=== PATIENT | female | born 1990 | race Asian ===

== ENCOUNTER 2021-09-30 12:30 | Outpatient (CLI) | payer OTHER, SELFPAY ==
[2021-09-30 14:58] LABS: Beta HCG Quantitative < 2.39 mIU/ML
== END 2021-09-30 12:31 | disposition home or self-care (01) ==
LOC: ANHLAB 12:37
PROVIDERS: Visit Provider Obstetrics & Gynecology
DX: N92.6 Irregular menstruation, unspecified (principal)
CPT/HCPCS: 36415; 84702

== ENCOUNTER 2022-06-05 10:00 | Outpatient (CLI) | payer OTHER, SELFPAY ==
[2022-06-10 21:18] LABS: Progesterone 0.4 ng/mL (***); Prolactin 12.1 ng/mL (***)
== END 2022-06-05 10:01 | disposition home or self-care (01) ==
LOC: ANHLAB 10:02
PROVIDERS: PCP Internal Medicine; Visit Provider Obstetrics & Gynecology
DX: N92.6 Irregular menstruation, unspecified (principal)
CPT/HCPCS: 36415; 84144; 84146; 84443

== ENCOUNTER 2023-11-23 12:03 | Outpatient (CLI) | payer OTHER, SELFPAY ==
[2023-11-23 13:40] LABS: Hematocrit 36.3 % (37.0-47.0); Mean Corpuscular HGB Conc 33.1 g/dl (32-36); Mean Corpuscular Volume 90.8 fl (80-100); Mean Platelet Volume 9.5 fl (7.4-10.4); Platelet Count Result 333 k/mm3 (150-375); Red Cell Distribution Width 12.8 % (11.5-14.5); White Blood Count 11.1 K/mm3 (4.5-10.0)
[2023-11-23 13:51] LABS: Glucose 1 Hour PP 50gm Dose 136 mg/dL
[2023-11-23 14:30] LABS: HIV 1/2 Ab P24 Ag Result Negative (Negative)
[2023-11-23 19:09] LABS: Rapid Plasma Reagin Non-Reactive (NonReactive)
== END 2023-11-23 12:04 | disposition home or self-care (01) ==
LOC: ANHLAB 12:05
PROVIDERS: PCP Internal Medicine; Visit Provider Student in an Organized Health Care Education/Training Program
DX: Z34.90 Encounter for supervision of normal pregnancy, unspecified, unspecified trimester (principal); Z3A.00 Weeks of gestation of pregnancy not specified
CPT/HCPCS: 36415; 82947; 85027; 86592; 86703; G0432

== ENCOUNTER 2023-11-30 06:53 | Outpatient (CLI) | payer OTHER, SELFPAY ==
[2023-11-30 07:24] LABS: Glucose Fasting Gestational 81 mg/dL (>/=95)
[2023-11-30 08:54] LABS: Glucose 1 Hour Gest 177 mg/dL (>/=180)
[2023-11-30 09:57] LABS: Glucose 2 Hour Gest 143 mg/dL (>/= 155)
[2023-11-30 11:38] LABS: Glucose 3 Hour Gest 85 mg/dL (>/=140)
== END 2023-11-30 06:54 | disposition home or self-care (01) ==
LOC: ANHLAB 06:55
PROVIDERS: PCP Internal Medicine; Visit Provider Obstetrics & Gynecology
DX: R73.09 Other abnormal glucose (principal)
CPT/HCPCS: 36415; 82951; 82952

== ENCOUNTER 2024-02-11 05:58 | Inpatient (IN) | payer OTHER, SELFPAY ==
[2024-02-11] VITALS (198 sets, daily range): BP systolic 80–161; BP diastolic 41–112; PULSE 59–167; RESP 18; TEMP 36.8–37.4; O2SAT 80–100; BMI 30.4
--- NOTE | 2024-02-11 06:26 | WPDANESEPP ---
Anes - Eval Pre Procedure Procedure: labor epidural Date/Time: 02/11/24 06:26 Surgeon: chika Preop Diagnosis: pain during labor Pre Op Diagnosis: Induction of Labor Patient Data Age: 33 Gender: F Height: Weight: Allergies Allergy/AdvReac Type Severity Reaction Status Date / Time No Known Allergies Allergy Verified 02/08/24 09:12 Home Medications Medication Instructions Recorded Confirmed Type vits no.126-ferrous fum 1 tablet PO DAILY 10/13/23 02/08/24 History 28 mg iron-folic acid 800 mcg tablet (Classic ) Patient hx anesthesia problems: none Family hx anesthesia problems: none Results Review: All pre-operative results and documents have been reviewed as part of the pre-operative evaluation. [facility] Past Medical History Medical History Encounter for IUD insertion 2014 Mirena insertion Encounter for IUD removal 06/09/19 Mirena removal History of hysterosalpingogram 06/26/2022 Family History Family History Other No pertinent family history Social History Social History Smoking status: Never smoker Second hand tobacco smoke exposure: Yes Alcohol intake: never Substance use: never Substance use type: does not use Do You Feel Safe in your Home?: Yes Lack of Transportation: No Lack of Food: Never True Current Housing: I Have Housing Concerned About Future Housing: No Difficulty Paying Gas/Electric Bills: No Difficulty Paying for Meds: No Currently Unemployed: No Education: Bachelor's Degree Difficulty w/ Childcare or Family Care: No Living arrangements: with family Additional living arrangements comments: single Occupation/Education: occupation 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
[2024-02-11 07:10] LABS: Basophils Percent Auto 0.2 % (0.2-1.2); Eosinophils Absolute Auto 0.1 K/mm3 (0-0.3); Eosinophils Percent Auto 1.4 % (0-4.4); Hematocrit 35.3 % (37.0-47.0); Hemoglobin 11.4 g/dL (12.0-15.0); Immature Granulocyte Absolute 0.04 K/mm3 (0.00-0.031); Immature Granulocyte Percent A 0.5 % (0-0.5); Lymphocytes Absolute Auto 2.21 K/mm3 (0.9-3.2); Lymphocytes Percent Auto 25.9 % (18.3-44.2); Mean Corpuscular HGB Conc 32.3 g/dl (32-36); Mean Corpuscular Hemoglobin 26.9 pg (26-34); Mean Corpuscular Volume 83.3 fl (80-100); Mean Platelet Volume 9.8 fl (7.4-10.4); Monocytes Percent Auto 11.3 % (2.6-8.5); Neutrophils Absolute Auto 5.2 K/mm3 (1.3-6.7); Neutrophils Percent Auto 60.7 % (45.5-73.1); Platelet Count Result 316 k/mm3 (150-375); Red Blood Count 4.24 M/mm3 (4.2-5.4); Red Cell Distribution Width 14.9 % (11.5-14.5); White Blood Count 8.5 K/mm3 (4.5-10.0)
--- NOTE | 2024-02-11 07:27 | LDADM ---
This patient, Bc Mueller, was admitted to Labor/Delivery/Recovery 103 on 02/11/24 at 05:58. Plans for labor, pain management and were discussed with patient. Patient/family oriented to hospital policies and general routines including ID bracelet, bed and alarms, visiting hours, pain management, procedures, bathroom and other care routines, personal items, smoking policy, room service/diet and guest tray routines, security routines, and visiting hours. Patient/Family are encouraged to report perceived risks to care and to ask questions if they do not understand what they are told or what they should do. See OBIX for further documentation.
[2024-02-11] MEDS: OXYTOCIN 30 UNITS/NS 500 ML 30 UNITS/500 ML BAG 6 UNITS IV CONT (07:51)
[2024-02-11] MEDS: LACTATED RINGERS 1,000 ML 125 ML IV CONT (07:53)
[2024-02-11] MEDS: AMPICILLIN 2 GM/NS 100 ML 2 GM/100 ML BAG IVPB (07:53)
[2024-02-11 07:59] LABS: HIV 1/2 Ab P24 Ag Result Negative (Negative)
[2024-02-11 08:16] LABS: Rapid Plasma Reagin Non-Reactive (NonReactive)
[2024-02-11] MEDS: AMPICILLIN 1 GM/NS 50 ML 1 GM/50 ML BAG IVPB ×2 (11:24→15:50)
--- NOTE | 2024-02-11 17:37 | WPDOBADMIT ---
Obstetrics - Admit Note Admission Note: record reviewed. No pertinent additions to the history and/or any subsequent changes in the physical findings that are not consistent with the expected course of the were found. Additions to the history and/or subsequent changes in the physical findings follow. None.
--- NOTE | 2024-02-11 17:37 | WPDHPUPDATE1 ---
History and Physical Update Update Date/Time: 02/11/24 17:37 History and Physical has been reviewed, including an updated exam of the patient. There are NO changes in the patient's condition. Risks, benefits, and alternatives have been discussed and questions answered. Patient agrees to proceed with procedure.
--- NOTE | 2024-02-11 17:38 | W.PM.PROC2 ---
Procedure Note - Detailed Date of Procedure 02/11/24 Pre-op Diagnosis Induction of Labor Post-op Diagnosis Same Surgeon Luis Aguilar MD
[2024-02-11] MEDS: OXYTOCIN 30 UNITS/NS 500 ML 30 UNITS/500 ML BAG 125 UNITS IV CONT (17:39)
--- NOTE | 2024-02-11 17:39 | PM.OBPRVD ---
OB - Vaginal Delivery Note Procedure Delivery date: 02/11/24 Induction method: AROM and Per Pitocin Protocol Delivery monitor: External FHT and External Uterine Route of delivery: Episiotomy description: None Laceration Description: Perineal - 3rd Degree Delivery repair: vicryl and chromic Specimen: No Quantitative Blood Loss (ml): 300 Anesthesia type: Epidural Disposition: Floor Complications: No immediate complications Narrative: Patient prepped and draped for this procedure. Discussion was undertaken with the patient regarding vacuum after pushing for 3hours and this was placed difficulty. With gentle traction the vertex was delivered without difficulty on the 2nd set of pushing with VAC in place. Vacuum was removed rest baby was delivered cord was clamped cut and baby was passed off the operative field the auto body repair technician in attendance. Placenta delivered spontaneously, minimal bleeding and uterus was well contracted. Partial third-degree laceration was noted and initially repaired using an 0 Vicryl interrupted sutures on the rectal sphincter edge. Then the vaginal mucosa was approximated 2-0 chromic in running interlocking manner beginning at the apex of the laceration to the perineum, deep tissue was approximated and the subcuticular layer as well. Her small amount of oozing from small lacerations and therefore packing was placed will be left in place for [id number]. This point the procedure was considered terminated and the immediate postoperative condition of mother baby were both excellent. [place] Baby Gestational Age by Date: 41 gender: Female Weight (pounds): 7 Weight (ounces): 10 presentation: vertex position: Right Occiput Anterior Placenta delivery description: Spontaneous Cord Vessel Description: 3 Vessels score one minute: 7 score five minutes: 9
--- NOTE | 2024-02-11 19:26 | OBPPTRN ---
Patient transferred to post room # 290 via wheelchair accompanied by spouse and . Support person present. PT oriented to unit, room, information board, rooming in, admission packet and security measures. Patient verbalizes understanding. PT introductions made and plan of care discussed per post , pain management, breast feeding, daily care activities. PT and spouse both recipients of such instructions and no barriers to learning identified at this time.
[2024-02-11] MEDS: WITCH HAZEL 40 PADS 1 PAD TOPICAL (19:27)
[2024-02-11] MEDS: BENZOCAINE 20% AER SPR (*SP) 56 GM CAN 1 SPRAY TOPICAL (19:27)
[2024-02-11] MEDS: IBUPROFEN 600 MG TABLET PO (21:15)
[2024-02-11] MEDS: ACETAMINOPHEN 325 MG TABLET 650 MG PO (21:16)
[2024-02-11] MEDS: LANOLIN (LANSINOH) 7.5 GM CREAM 1 APPLIC TOPICAL (21:18)
[2024-02-12 00:31] VITALS: BP 121/52; PULSE 91; RESP 16; TEMP 37.2; O2SAT 100
[2024-02-12 05:46] LABS: Hematocrit 30.1 % (37.0-47.0); Hemoglobin 9.7 g/dL (12.0-15.0)
[2024-02-12 07:25] VITALS: BP 108/77; PULSE 80; RESP 16; TEMP 36.7; O2SAT 100
[2024-02-12] MEDS: MULTIVIT/MIN/PREN/FOL AC/IRON TABLET 1 TAB PO (07:45)
[2024-02-12] MEDS: DOCUSATE SODIUM 100 MG CAPSULE PO ×2 (07:45→16:03)
[2024-02-12] MEDS: POLYSACCHARIDE IRON COMPLEX 150 MG CAPSULE PO ×2 (07:45→16:03)
[2024-02-12] MEDS: ACETAMINOPHEN 325 MG TABLET 650 MG PO ×3 (07:45→22:55)
--- NOTE | 2024-02-12 07:59 | WPDANLDPN2 ---
Anes-Prog Note L&D Date/Time: 02/12/24 07:59 Comfortable throughout: labor and delivery Neuraxial method: epidural Epidural/Spinal procedure site: tender Neuro status: Neuro function grossly intact. Cardiovascular status: normal Respiratory status: normal Airway patency: baseline Mental status: baseline Post-Op hydration status: normal Vital Signs: Last Vital Signs Temp 37.2 C 02/12/24 00:31 Pulse 91 02/12/24 00:31 Resp 16 02/12/24 00:31 BP 121/52 L 02/12/24 00:31 Pulse Ox 100 02/12/24 00:31 O2 Del Method Room Air 02/11/24 07:26 Pain score (VAS): 2/10 I/O: Intake & Output 02/11/24 02/11/24 02/12/24 15:59 23:59 07:59 Intake Total 50 480 Output Total 300 Balance 50 180 Post-procedural complaints: none Patient feedback: Patient satisfied with anesthetic care.
--- NOTE | 2024-02-12 08:30 | PC.NURSE ---
Introductions were made, then consulted with patient to assess needs related to . Mother led the conversation with her?plans to feed?her infant and the?experience so far. Mom says that baby has been latching well until recently, and baby was very fussy as mom was attempting to latch. Encouraged understanding of calming baby and waiting for a wide open mouth before trying to latch. Mother works well with her infant with encouragement and education. Reviewed positioning and ear, shoulder, hip alignment, supporting the breast to facilitate a deep latch, asymmetrical latch (off-center), leading with the chin with a big, open, wide gape and body close to mother. latched optimally to the [right] breast in [cross cradle] position. was [able] to maintain latch without pain to mother. Resources used for education were facilitated with number/name written on the communication board, and the mom/baby guide. Parents voiced understanding of information, demonstrated learning and will call if there is a request for assistance. Reported to the Primary RN.
--- NOTE | 2024-02-12 11:35 | PM.OBDSVD ---
DS: Admitting Diagnosis Discharge Date 02/13/2024 Admitting Diagnosis DS: Discharge Diagnosis Discharge Diagnosis (1) , delivered: Code(s): O80 - Encounter for full-term uncomplicated delivery Status: Acute OB - DS: Summary OB Procedures : None OB Procedures Intrapartum: Vacuum extraction OB Procedures: : None Peripartum Data Laceration Description: Perineal - 3rd Degree Episiotomy description: None Time Spent with Patient Time attestation: Total time spent providing and/or coordinating discharge services: DS: Data Data Completed and Pending Labs on day of discharge: Labs from last 24 hours 02/12/24 04:52 Hgb 9.7 L Hct 30.1 L Discharge Plan Discharge Discharging Clinician: Luis Aguilar Patient Disposition: Home, Self-Care Activity: may shower, no straining, as tolerated, follow weight bearing status and pelvic rest Diet: as tolerated Patient Instructions: Antibiotic Form Stand Alone Forms: General Discharge Information Follow-up/Referrals: Luis Aguilar MD [Physician] - 3 Weeks Discharge Medications: New ibuprofen 600 mg Tablet 600 mg PO Q6H PRN (Reason: Cramping) Qty: 30 0RF Continued Classic 28 mg iron- 800 mcg tablet 1 tablet PO DAILY Date of admission: 02/11/24 05:58 Primary Care Provider: Wil Gomez Admitting Provider: Luis Aguilar Attending physician on admission: Luis Aguilar Condition: Stable
[2024-02-12 12:00] VITALS: BP 108/72; PULSE 93; RESP 16; TEMP 37.1; O2SAT 99
[2024-02-12] MEDS: IBUPROFEN 600 MG TABLET PO ×2 (12:08→22:54)
[2024-02-12 20:00] VITALS: BP 124/74; PULSE 86; RESP 16; TEMP 36.9; O2SAT 100; O2SAT 99
[2024-02-13] MEDS: ACETAMINOPHEN 325 MG TABLET 650 MG PO (04:58)
[2024-02-13] MEDS: IBUPROFEN 600 MG TABLET PO (04:58)
[2024-02-13] MEDS: MULTIVIT/MIN/PREN/FOL AC/IRON TABLET 1 TAB PO (07:55)
[2024-02-13] MEDS: POLYSACCHARIDE IRON COMPLEX 150 MG CAPSULE PO (07:55)
[2024-02-13] MEDS: DOCUSATE SODIUM 100 MG CAPSULE PO (07:56)
[2024-02-13 08:00] VITALS: BP 119/86; PULSE 75; RESP 18; TEMP 37.4; O2SAT 100
--- NOTE | 2024-02-13 10:05 | PM.OBPNVD ---
OB - PN: Subj Subjective Date/time seen: 02/13/24 10:05 Patient comments: pain well controlled, tolerating diet and other (Decreasing lochia.) baby status: doing well and nursing well OB - PN: Obj Data Labs 02/12/24 04:52 OB - PN A/P Assessment and Plan (1) Vaginal delivery: Code(s): O80 - Encounter for full-term uncomplicated delivery Status: Acute Plan day: 2 Plan: discharge home and other Comments: Patient doing well. Follow up 4-6 weeks. Discharge instructions provided. Time Spent With Patient Time: Total time spent is greater than 50% in coordination of care (as documented) at patient's floor/unit and/or counseling patient: Time with patient: less than 15 minutes Exam Psych: Other: Ext: nontender
--- NOTE | 2024-02-13 11:32 | PC.NURSE ---
Patient's mother and father informed to come back to [facility] [place] for bili and weight check. Parents verbalize understanding.
[2024-02-15 11:25] VITALS: BP 121/69; PULSE 83; RESP 18; TEMP 36.8; O2SAT 100
== END 2024-02-13 11:30 | disposition home or self-care (01) | DRG 768 ==
LOC: ANHLDR 06:01 → ANHOB2 19:39
PROVIDERS: Admitting Provider Obstetrics & Gynecology; PCP Internal Medicine; Visit Provider Obstetrics & Gynecology
DX: O99.824 Streptococcus B carrier state complicating childbirth (principal); Z37.0 Single live birth; O70.20 Third degree perineal laceration during delivery, unspecified; Z3A.39 39 weeks gestation of pregnancy
CPT/HCPCS: 36415; 85014; 85018; 85025; 86592; 86703; 86850; 86900; 86901; A9270; G0432; J0290; J2590; J2795; J7120